=== PATIENT | male | born 1950 | race Caucasian/White ===

== ENCOUNTER 2020-01-13 15:50 | Inpatient (IN) | payer BC, MEDICARE ==
[~2020-01-13] VITALS: Ht 182.8 cm; Wt 90.7 kg
--- NOTE | 2020-01-13 15:59 | ED Chest Pain ---
General Stated Complaint: CHEST PAIN Source: patient Exam Limitations: no limitations History of Present Illness Date Seen by Provider: Jan 13, 2020 Time Seen by Provider: 15:57 Initial Comments To ER with reports of chest pain. This began about 3:05 PM while he was driving to work and [place]. 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 He lives in [facility] where his primary care provider is at. He has a history of hypertension. No history of chest pain. This pain is described as tightness in the center of his chest and was associated with diaphoresis. No nausea. EMS arrived and gave 324 mg of aspirin as well as 1 sublingual nitroglycerin which completely alleviated his pain. However [facility] pain recurred and is rated at 4-5 out of 10. He does not smoke or have known hyperlipidemia or diabetes. 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 SL SHUTTLE BUGGY OPERATOR: Yes Allergies and Home Medications Allergies Coded Allergies: No Known Drug Allergies (Unverified , 01/13/20) Patient Home Medication List Home Medication List Reviewed: Yes Review of Systems Review of Systems Constitutional: see HPI EENTM: No Symptoms Reported Respiratory: No Symptoms Reported Cardiovascular: See HPI, Chest Pain Gastrointestinal: No Symptoms Reported Genitourinary: No Symptoms Reported Musculoskeletal: no symptoms reported Skin: no symptoms reported Psychiatric/Neurological: No Symptoms Reported Endocrine: No Symptoms Reported Hematologic/Lymphatic: No Symptoms Reported Physical Exam Vital Signs Capillary Refill : Height, Weight, BMI Height: '" Weight: lbs. oz. kg; BMI Method: General Appearance: No Apparent Distress, WD/WN, Other HEENT: PERRL/EOMI, TMs Normal Neck: Full Range of Motion, Normal Inspection Respiratory: Normal Breath Sounds, No Accessory Muscle Use, No Respiratory Dis tress Cardiovascular: Regular Rate, Rhythm, Normal Peripheral Pulses Gastrointestinal: Non Tender, Soft Extremity: Normal Capillary Refill, Normal Inspection Neurologic/Psychiatric: Alert, Oriented x3 Skin: Normal Color, Warm/Dry Progress/Results/Core Measures Results/Orders Lab Results Laboratory Tests Test 01/13/20 16:00 Range/Units White Blood Count 6.6 4.3-11.0 10^3/uL Red Blood Count 5.84 H 4.30-5.52 10^6/uL Hemoglobin 16.9 13.3-17.7 g/dL Hematocrit 52 40-54 % Mean Corpuscular Volume 88 80-99 fL Mean Corpuscular Hemoglobin 29 25-34 pg Mean Corpuscular Hemoglobin Concent 33 32-36 g/dL Red Cell Distribution Width 14.3 10.0-14.5 % Platelet Count 166 130-400 10^3/uL Mean Platelet Volume 11.6 9.0-12.2 fL Immature Granulocyte % (Auto) 0 % Neutrophils (%) (Auto) 72 42-75 % Lymphocytes (%) (Auto) 18 12-44 % Monocytes (%) (Auto) 9 0-12 % Eosinophils (%) (Auto) 1 0-10 % Basophils (%) (Auto) 1 0-10 % Neutrophils # (Auto) 4.7 1.8-7.8 10^3/uL Lymphocytes # (Auto) 1.2 1.0-4.0 10^3/uL Monocytes # (Auto) 0.6 0.0-1.0 10^3/uL Eosinophils # (Auto) 0.1 0.0-0.3 10^3/uL Basophils # (Auto) 0.0 0.0-0.1 10^3/uL Immature Granulocyte # (Auto) 0.0 0.0-0.1 10^3/uL My Orders Orders - RACHELE HECTOR TUTOR COORDINATOR Cbc With Automated Diff (01/13/20 15:55) Magnesium (01/13/20 15:55) Chest 1 View, Ap/Pa Only (01/13/20 15:55) Ekg Tracing (01/13/20 15:55) Comprehensive Metabolic Panel (01/13/20 15:55) Myoglobin Serum (01/13/20 15:55) Protime With Inr (01/13/20 15:55) Partial Thromboplastin Time (01/13/20 15:55) O2 (01/13/20 15:55) Monitor-Rhythm Ecg Trace Only (01/13/20 15:55) Lipid Panel (01/14/20 06:00) Ed Iv/Invasive Line Start (01/13/20 15:55) BNP (01/13/20 15:55) Troponin I (01/13/20 15:55) Nitroglycerin 0.4 Mg Btl 25's (Nitrostat (01/13/20 16:00) Antacid Suspension (Mylanta Suspension (01/13/20 16:00) Lidocaine 2% Viscous 15 Ml (Xylocaine Vi (01/13/20 16:00) Clopidogrel Tablet (Plavix Tablet) (01/13/20 16:15) Covid 19 Inhouse Test (01/13/20 16:07) Lidocaine 1% Inj 20 Ml (Xylocaine 1% Inj (01/13/20 16:09) Midazolam Injection (Versed Injection) (01/13/20 16:09) Fentanyl Injection (Sublimaze Injection (01/13/20 16:09) Heparin (Bolus Per Protocol) (Heparin (B (01/13/20 16:09) Ns Iv 1000 Ml (Sodium Chloride 0.9%) (01/13/20 16:09) Nitro Drip 21520 Mcg/D5w (Nitroglycerin (01/13/20 16:09) Heparin (Pattern Perforating Machine Operator) (Heparin (Pattern Perforating Machine Operator)) (01/13/20 16:10) Medications Given in ED Current Medications Medications Dose Ordered Sig/Jaison Route Start Time Stop Time Status Last Admin Dose Admin Clopidogrel Bisulfate 300 mg ONCE ONCE PO 01/13/20 16:15 01/13/20 16:16 DC 01/13/20 16:09 300 MG Nitroglycerin 1 TAB Q 5 MIN X 3 NEEDED PRN SL 01/13/20 16:00 01/13/20 16:09 0.4 MG Departure Communication (Admissions) [id number]-EMS obtained an EKG showing questionable ST elevation in V1 V2 V3. He does have hyperacute T waves in V2 and V3. Upon arrival here EKG was obtained, there is less pronounced ST elevation in V1 and V3 but more pronounced in V2. He is having active chest pain. I gave 300 mg of Plavix in addition to the aspirin, page to Dr. Smith who is now here to see the patient. Impression Primary Impression: Chest pain Additional Impression: Abnormal EKG Disposition: ADMITTED INPATIENT Condition: Stable Admissions Decision to Admit Reason: Admit from ER (General) Decision to Admit/Date: Jan 13, 2020 Time/Decision to Admit Time: 16:22 RACHELE HECTOR TUTOR COORDINATOR Jan 13, 2020 15:59
[2020-01-13] MEDS ORDERED: ANTACID SUSP 30 ML UDC (MYLANTA) PO ONE (16:00)
[2020-01-13] MEDS ORDERED: LIDOCAINE 2% VISCOUS 15 ML UDC PO ONE (16:00)
[2020-01-13] MEDS ORDERED: NITROGLYCERIN 0.4 MG SL TABS BTL 25'S SL PRN (16:00)
[2020-01-13] MEDS ORDERED: fentaNYL INJECTION 100 MCG/2 ML AMP ONE (16:09)
[2020-01-13] MEDS ORDERED: HEParin 1000 UNIT/ML (10ML VIAL) FOR BOLUS ONE (16:09)
[2020-01-13] MEDS ORDERED: NS IV 1000 ML 1,000 ML ONE (16:09)
[2020-01-13] MEDS ORDERED: NITRO DRIP 25000 MCG/D5W 250 ML IV ONE (16:09)
[2020-01-13] MEDS ORDERED: LIDOCAINE 1% INJ 20 ML 20 ML VIAL ONE (16:09)
[2020-01-13] MEDS ORDERED: MIDAZOLAM 5 MG/5 ML (VERSED) VIAL ONE (16:09)
[2020-01-13] MEDS ORDERED: HEParin (CATH LAB) 2,000 ML IV ONE (16:10)
[2020-01-13 16:15] LABS: BASOPHILS % (AUTO) 1 % (0-10); EOSINOPHILS # (AUTO) 0.1 10^3/uL (0.0-0.3); EOSINOPHILS % (AUTO) 1 % (0-10); HEMATOCRIT 52 % (40-54); HEMOGLOBIN 16.9 g/dL (13.3-17.7); LYMPHOCYTES # (AUTO) 1.2 10^3/uL (1.0-4.0); LYMPHOCYTES % (AUTO) 18 % (12-44); MEAN CORPUSCULAR HEMOGLOBIN 29 pg (25-34); MEAN CORPUSCULAR HGB CONC 33 g/dL (32-36); MEAN CORPUSCULAR VOLUME 88 fL (80-99); MEAN PLATELET VOLUME 11.6 fL (9.0-12.2); MONOCYTES # (AUTO) 0.6 10^3/uL (0.0-1.0); MONOCYTES % (AUTO) 9 % (0-12); NEUTROPHILS # (AUTO) 4.7 10^3/uL (1.8-7.8); NEUTROPHILS % (AUTO) 72 % (42-75); PLATELET COUNT 166 10^3/uL (130-400); WHITE BLOOD COUNT 6.6 10^3/uL (4.3-11.0)
[2020-01-13] MEDS ORDERED: CLOPIDOGREL 300 MG (PLAVIX) TABLET PO ONE ×2 (16:15→17:06)
[2020-01-13 16:21] VITALS: BP 163/94
[2020-01-13 16:29] LABS: INR 1.1 (0.8-1.4); PROTHROMBIN TIME PATIENT 14.3 SEC (12.2-14.7)
[2020-01-13 16:33] LABS: ALBUMIN 4.5 GM/DL (3.2-4.5)
[2020-01-13 16:34] LABS: POTASSIUM 4.3 MMOL/L (3.6-5.0)
[2020-01-13 16:35] LABS: CALCIUM 9.1 MG/DL (8.5-10.1)
[2020-01-13 16:36] LABS: TOTAL PROTEIN 7.6 GM/DL (6.4-8.2)
[2020-01-13 16:38] LABS: BILIRUBIN,TOTAL 0.6 MG/DL (0.1-1.0)
[2020-01-13 16:40] LABS: CREATININE SERUM 1.85 MG/DL (0.60-1.30)
[2020-01-13 16:42] LABS: MAGNESIUM 2.3 MG/DL (1.6-2.4)
--- NOTE | 2020-01-13 17:08 | Cardiac Procedure Note-CS/ASA ---
Pre-Procedure Note Pre-Op Procedure Note H&P Reviewed The H&P was reviewed, patient examined and no changes noted. Date H&P Reviewed: Jan 13, 2020 Time H&P Reviewed: 16:00 Conscious Sedation Pre-Proced Time 16:00 ASA Score 3 For ASA 3 and 4: Consider anesthesia and medical clearance. Also, for patients with a history of failed moderate sedation consider anesthesia. Airway Lungs Heart ASA score ASA 1: a normal healthy patient ASA 2: a patient with a mild systemic disease (mid diabetes, controlled hypertension, obesity x ASA 3: a patient with a severe systemic disease that limits activity (angina, COPD, prior Myocardial infarction) ASA 4: a patient with an incapacitating disease that is a constant threat to life (CHF, renal failure) ASA 5: a moribund patient not expected to survive 24 hrs. (ruptured aneurysm) ASA 6: a declared brain- patient whose organs are being harvested. For emergent operations, add the letter E after the classification Mallampati Classification Grade 3 Sedation Plan Analgesia, Amnesia, Plan communicated to team members, Discussed options with patient/fam, Discussed risks with patient/fam The patient is an appropriate candidate to undergo the planned procedure, sedation, and anesthesia. The patient immediately re-assessed prior to indication. KIYA DICKENS MD Jan 13, 2020 17:08
--- NOTE | 2020-01-13 17:14 | Cardiology History & Physical ---
HPI-Cardiology Cardiology Consultation Date of Consultation 01/13/20 Date of Admission Time Seen by Provider: 16:00 Indication: chest pain HPI 69 years old gentleman with history of hypertension, hyperlipidemia, hypothyroidism and chronic kidney disease. Started to have chest pain described as dull in nature in the retrosternal area associated with diaphoresis. Came into the emergency room and noted to have ST elevation in V2 only. Pain improved with sublingual nitroglycerin but continued to have mild chest discomfort. No similar episode in the past no previous cardiac history. PMH-Cardiology Immunizations Up To Date Tetanus Booster (DTap): Unknown Seasonal Allergies Seasonal Allergies: No Surgeries Yes Respiratory No Cardiovascular Yes Neurological No Genitourinary Yes (CKD3) Musculoskeletal No Endocrine Yes Hypothyroidsim HEENT Yes (DETACHED RETINA) Cancer No Psychosocial No Integumentary No Blood Transfusions No Social History Patient Social History Marrital Status: Employed/Student: employed Alcohol Use: Denies Use Recreational Drug Use: No Recent Foreign Travel: No Contact w/other who traveled: No Recent Infectious Disease Expo: No Family Hx Other non contributory ROS-Cardiology Review of Systems General: No Chills, No Night Sweats, No Fatigue, No Malaise, No Appetite HEENT: No Head Aches, No Visual Changes, No Eye Pain, No Ear Pain, No Dysphasia, No Sinus Congestion, No Post Nasal Drip, No Sore Throat Pulmonary: Dyspnea; No Cough, No Pleuritic Chest Pain Cardiovascular: Chest Pain; No: Palpitations, Orthopnea, Paroxysmal Noc. Dyspnea, Edema, Lt Headedness Gastrointestinal: No: Nausea, Vomiting, Abdominal Pain, Diarrhea, Constipation, Melena, Hematochezia Genitourinary: No Dysuria, No Frequency, No Incontinence, No Hematuria, No Retention Musculoskeletal: No: neck pain, shoulder pain, arm pain, back pain, hand pain, leg pain, foot pain Neurological: No: Weakness, Numbness, Incoordination, Change in speech, Confusion, Seizures Home Medications & Allergies Allergies: Coded Allergies: No Known Drug Allergies (Unverified , 01/13/20) Home Medication List Reviewed: Yes Exam-Cardiology Vital Signs Vital Signs Date Time Temp Pulse Resp B/P (MAP) Pulse Ox O2 Delivery O2 Flow Rate FiO2 01/13/20 16:21 77 10 163/94 98 Room Air 01/13/20 15:50 36.1 Exam General Appearance: Alert, Oriented X3, Cooperative, No Acute Distress HEENT: Atraumatic, PERRLA Respiratory: Clear to Auscultation, Normal Air Movement Cardiovascular: Regular Rate, Normal S1, Normal S2, No Murmurs Abdominal: Normal Bowel Sounds, Soft, No Tenderness, No Hepatosplenomegaly, No Masses Extremities: No Clubbing, No Cyanosis, No Edema, Normal Pulses, No Tenderness/Swelling Skin: No Rashes, No Breakdown, No Significant Lesion Neuro: Normal Gait, Normal Speech, Strength at 5/5 X4 Ext, Normal Tone, Sensation Intact Psych/Mental Status: Mental Status NL, Mood NL Results Labs Labs Laboratory Tests 01/13/20 16:00: White Blood Count 6.6, Red Blood Count 5.84H, Hemoglobin 16.9, Hematocrit 52, Mean Corpuscular Volume 88, Mean Corpuscular Hemoglobin 29, Mean Corpuscular Hemoglobin Concent 33, Red Cell Distribution Width 14.3, Platelet Count 166, Mean Platelet Volume 11.6, Immature Granulocyte % (Auto) 0, Neutrophils (%) (Auto) 72, Lymphocytes (%) (Auto) 18, Monocytes (%) (Auto) 9, Eosinophils (%) (Auto) 1, Basophils (%) (Auto) 1, Neutrophils # (Auto) 4.7, Lymphocytes # (Auto) 1.2, Monocytes # (Auto) 0.6, Eosinophils # (Auto) 0.1, Basophils # (Auto) 0.0, Immature Granulocyte # (Auto) 0.0, Prothrombin Time 14.3, INR Comment 1.1, Activated Partial Thromboplast Time 26, Sodium Level 139, Potassium Level 4.3, Chloride Level 105, Carbon Dioxide Level 20L, Anion Gap 14, Blood Urea Nitrogen 21H, Creatinine 1.85H, Estimat Glomerular Filtration Rate 36, BUN/Creatinine Ratio 11, Glucose Level 98, Calcium Level 9.1, Corrected Calcium 8.7, Magnesium Level 2.3, Total Bilirubin 0.6, Aspartate Amino Transf (AST/SGOT) 28, Alanine Aminotransferase (ALT/SGPT) 19, Alkaline Phosphatase 48, Myoglobin 63.3, Troponin I < 0.028, B-Type Natriuretic Peptide 21.4, Total Protein 7.6, Albumin 4.5 01/13/20 16:12: Coronavirus 2019 (TYRELL) Negative A/P-Cardiology Admission Diagnosis Non-ST elevation myocardial infarctions Hypertension Hyperlipidemia Chronic kidney disease Admission Status: Inpatient Order (span 2 midnights) Reason for Inpatient Admission: Acute myocardial infarction Assessment/Plan Non-ST elevation myocardial infarction, had mild changes in V2 only. We will proceed with emergency cardiac catheterization possible PTCA Coronary artery disease, cardiac catheterization was carried out showing severe first obtuse marginal stenosis with successful stenting using 2.5 x 12 mm drug- eluting stent with excellent results Hypertension, poorly controlled on multiple medication, restart home medication and monitor, adding Toprol-XL 25 mg daily Hyperlipidemia, maintained on simvastatin, I will change it to Lipitor and monitor tolerance and response Hypothyroidism maintained on levothyroxine Chronic kidney disease stage III. Following with a quality control tech in [place]. Continue to monitor Clinical Quality Measures AMI/AHF: ASA po Prior to arrival: Yes KIYA DICKENS MD Jan 13, 2020 17:14
[2020-01-13] MEDS ORDERED: PATIENT MAY USE OWN MEDS, ALL PO SCH (17:15)
--- NOTE | 2020-01-13 17:20 | Cardiac Cath Report ---
Cardiac Cath Report Physician (s)/Gamma Operator (s) Physician KIYA DICKENS MD Pre-Procedure Diagnosis Pre-Procedure Diagnosis: non-ST elevation myocardial infarction Post-Procedure Note Procedure Start Date: Jan 13, 2020 Name of Procedure: Left heart Catheterization Stenting to the obtuse marginal branch Findings/Procedure Note PROCEDURE NOTE: 69 years old gentleman admitted with non-ST elevation myocardial infarction, emergency cardiac catheterization was carried out. After explaining the procedure to the patient, all pros and cons were explained, all questions were answered. The patient signed the consent and then he was placed on the cardiac catheterization laboratory. Groin was prepped SL fashion local anesthesia was used. Sheath placed in the right femoral artery. Errol right and vascular right coronary artery and angiogram was done. I was unable to intubate the left coronary system with the SL catheter, I tried for the catheter without success then I was able to place EBU 3.5 guide close to the left main with grade difficulties. Angiogram was done which showed severe first obtuse marginal artery stenosis. Patient was given 5000 units of heparin, BMW wire was advanced through the obtuse marginal branch and then I adjusted the guide position and advanced drug- eluting Courtney 2.5 x 12 stent deployed under 12 larry, there was significant residual stenosis and used noncompliant tract 2.5 x 12 mm under 16 larry was able to open up the artery with excellent results At the end of the procedure the sheath was removed. Closure device was used FINDINGS: Hemodynamics LV 172/13, end-diastolic pressure of 13 Aorta 179/91 mean of 127 ANATOMY: Left Main has superior origin from the left coronary cusp. Mild disease nonobstructive disease Left Anterior Descending is smaller artery with mild tortuosity 50 percent distal stenosis, nonobstructive disease Left Circumflex is moderate in size with 95 percent stenosis in the mid first obtuse marginal branch successful primary stenting using Courtney 2.5 x 12 mm pos tdilated with noncompliant balloon under 16 larry with excellent results Right Coronory Artery is moderate in size with mild to moderate disease in the proximal and midportion LV Gram was not done to limit dye exposure to contrast, pressure was measured CONCLUSION: 1. Severe stenosis in the first obtuse marginal branch was successful primary stenting using Courtney 2.5 x 12 mm expanded to 2.6 mm using a noncompliant balloon with excellent results 2. Mild to moderate disease in the mid and distal LAD and proximal and midright coronary artery 3. Hypertension with hypertensive changes in the thoracic aorta, did not do angiogram to limit dye exposure to contrast 4. Mildly elevated left ventricular end-diastolic pressure DISCUSSION AND RECOMMENDATION: Patient was bolused with aspirin and Plavix, continue to maximize medical t herapy Anesthesia Type: Conscious Sedation Estimated blood loss (mL): 50 ml Contrast Amount: 73 ml Total Radiation Dose: 1609 mGy Post-Procedure Diagnosis Post-operative diagnosis: Non-ST elevation myocardial infarction Coronary artery disease Hypertension Hyperlipidemia KIYA DICKENS MD Jan 13, 2020 17:20
[2020-01-13] MEDS: NS IV 1000 ML 1,000 ML IV SCH ×2 (17:58→22:45)
[2020-01-13] MEDS: amLODIPine 10 MG (NORVASC) TAB PO SCH (22:44)
[2020-01-13] MEDS: OMEGA 3 (FISH OIL) 1000 MG CAP PO SCH (22:44)
[2020-01-13] MEDS: lisINopril 10 MG (PRINIVIL) TABLET PO SCH (22:45)
--- NOTE | 2020-01-14 02:15 | NUR ---
PATIENT AMBULATED IN HALLS. TOLERATED WELL. DENIES CHEST PAIN AND SOB. RIGHT GROIN SITE ASSESSED AFTER AMBULATION AND SITE IS SOFT, CLEAN, DRY AND INTACT.
[2020-01-14 03:37] LABS: HEMOGLOBIN 15.2 g/dL (13.3-17.7); MEAN PLATELET VOLUME 11.2 fL (9.0-12.2); WHITE BLOOD COUNT 6.2 10^3/uL (4.3-11.0)
[2020-01-14 04:10] LABS: CALCIUM 8.3 MG/DL (8.5-10.1)
[2020-01-14 04:14] LABS: CREATININE SERUM 1.5 MG/DL (0.60-1.30)
--- NOTE | 2020-01-14 06:48 | NUR ---
DR. DICKENS NOTIFIED OF ELEVATED TROPONIN AND ELEVATED BLOOD PRESSURE OF 170/107 AND THAT AM OF METOPROLOL WAS GIVEN EARLY. WILL CONTINUE TO MONITOR.
[2020-01-14] MEDS ORDERED: ASPIRIN E.C. 81 MG (ECOTRIN) TAB PO SCH (09:00)
[2020-01-14] MEDS ORDERED: CLOPIDOGREL 75 MG (PLAVIX) TABLET PO SCH (09:00)
[2020-01-14] MEDS ORDERED: OMG1KC PO (09:11)
[2020-01-14] MEDS ORDERED: LISI10TA2 PO (09:11)
[2020-01-14] MEDS ORDERED: AMLO-251 PO (09:11)
[2020-01-14] MEDS ORDERED: MTP25TSR PO (09:11)
[2020-01-14] MEDS ORDERED: ATOR20TA66 PO (09:11)
[2020-01-14] MEDS ORDERED: ASPI-1238 PO (09:11)
[2020-01-14] MEDS ORDERED: CLOP75TA28 PO (09:11)
--- NOTE | 2020-01-14 09:11 | Discharge Inst-Post CATH ---
Discharge Inst-CATH/EP Problems Reviewed?: Yes Post Cardiac Cath/EP D/C Inst Follow Up/Plan Appointment with Dr Smith's office in 2-4 weeks <b>CARDIAC CATH/EP PROCEDURE DISCHARGE INSTRUCTIONS</b> ACTIVITY * Go Home directly and rest. * Limit activity of the leg (or wrist if it was used) for 7 days including aerobics, swimming, jogging, bicycling, etc. * Restrict stair-climbing for 7 days if possible, if not, climb up with your non-cath leg, then bring together on the same step. * Avoid lifting, pushing, pulling or excessive movement of the affected extremity for 7 days. * Customary sexual activity may be resumed after 2 days-use caution not to use a position that strains or causes pain to the affected extremity. * No driving for 24 hours. * NO SMOKING. * Avoid straining for bowel movements for 7 days. * Gentle walking on level ground is allowed. * Returning to work will depend on the type of procedure and the results. Your doctor will discuss this with you. CALL YOUR DOCTOR FOR ANY OF THE FOLLOWING: *If bleeding from the puncture site occurs- Apply gentle pressure to site with clean cloth and call your doctor or EMS. * If a knot or lump forms under the skin, increases in size, or causes pain. * If bruising appears to be worsening or moving further down your leg instead of disappearing. * Temperature above 101 F. CARE OF YOUR GROIN INCISION; * Bruising or purple discoloration of the skin near the puncture site is common. * You may shower only, no bathtub bathing for 5 days. Be careful to avoid slipping as your leg may feel stiff. * If a closure device was used on your femoral artery, please see the attached guide regarding care of the device and your leg. * Leave dressing on FOR 24 hours. CARE OF YOUR WRIST INCISION; * Bruising or purple discoloration of the skin near the puncture site is common. * You may shower. * DO NOT submerge wrist. * Leave dressing on FOR 24 hours. KIYA SMITH MD Jan 14, 2020 09:11
--- NOTE | 2020-01-14 09:30 | Cardiology Discharge Summary ---
Discharge Summary Hospital Course Hospital Course Date of Admission: Admission Diagnosis : Family Physician/Provider: YessicaLocal Physician Date of Discharge: 01/14/20 Discharge Diagnosis: [ ] Hospital Course: [ Non-ST elevation myocardial infarction, on and is elevated to 19,had cardiac catheterization and stent as described below Coronary artery disease, cardiac catheterization was carried out showing severe first obtuse marginal stenosis with successful stenting using 2.5 x 12 mm drug- eluting stent with excellent results Hypertension, restart home medication monitor blood pressure Hyperlipidemia, maintained on simvastatin, I will change it to Lipitor and monitor tolerance and response Hypothyroidism maintained on levothyroxine Chronic kidney disease stage III. Following with a complaint manager in [place]. Continue to monitor] Labs and Pending Lab Test: Laboratory Tests 01/13/20 16:00: White Blood Count 6.6, Red Blood Count 5.84H, Hemoglobin 16.9, Hematocrit 52, Mean Corpuscular Volume 88, Mean Corpuscular Hemoglobin 29, Mean Corpuscular Hemoglobin Concent 33, Red Cell Distribution Width 14.3, Platelet Count 166, Mean Platelet Volume 11.6, Immature Granulocyte % (Auto) 0, Neutrophils (%) (Auto) 72, Lymphocytes (%) (Auto) 18, Monocytes (%) (Auto) 9, Eosinophils (%) (Auto) 1, Basophils (%) (Auto) 1, Neutrophils # (Auto) 4.7, Lymphocytes # (Auto) 1.2, Monocytes # (Auto) 0.6, Eosinophils # (Auto) 0.1, Basophils # (Auto) 0.0, Immature Granulocyte # (Auto) 0.0, Prothrombin Time 14.3, INR Comment 1.1, Activated Partial Thromboplast Time 26, Sodium Level 139, Potassium Level 4.3, Chloride Level 105, Carbon Dioxide Level 20L, Anion Gap 14, Blood Urea Nitrogen 21H, Creatinine 1.85H, Estimat Glomerular Filtration Rate 36, BUN/Creatinine Ratio 11, Glucose Level 98, Calcium Level 9.1, Corrected Calcium 8.7, Magnesium Level 2.3, Total Bilirubin 0.6, Aspartate Amino Transf (AST/SGOT) 28, Alanine Aminotransferase (ALT/SGPT) 19, Alkaline Phosphatase 48, Myoglobin 63.3, Troponin I < 0.028, B-Type Natriuretic Peptide 21.4, Total Protein 7.6, Albumin 4.5 01/13/20 16:12: Coronavirus 2019 (TYRELL) Negative 01/14/20 03:25: White Blood Count 6.2, Red Blood Count 5.26, Hemoglobin 15.2, Hematocrit 46, Mean Corpuscular Volume 87, Mean Corpuscular Hemoglobin 29, Mean Corpuscular Hemoglobin Concent 33, Red Cell Distribution Width 14.3, Platelet Count 168, Mean Platelet Volume 11.2, Sodium Level 137, Potassium Level 4.0, Chloride Level 107, Carbon Dioxide Level 18L, Anion Gap 12, Blood Urea Nitrogen 19H, Creatinine 1.50H, Estimat Glomerular Filtration Rate 46, BUN/Creatinine Ratio 13, Glucose Level 96, Calcium Level 8.3L, Troponin I 19.207*H, Triglycerides Level 120, Cholesterol Level 261H, LDL Cholesterol Direct 215H, VLDL Cholesterol 24, HDL Cholesterol 45 Home Meds Active Assessment/Pt DC Instructions discharge instruction were given to the patient Discharge Physical Examination Allergies: Coded Allergies: No Known Drug Allergies (Unverified , 01/13/20) General Appearance: No Apparent Distress, WD/WN HEENT: PERRL/EOMI, TMs Normal, Normal ENT Inspection, Pharynx Normal Respiratory: Chest Non Tender, Lungs Clear, Normal Breath Sounds, No Accessory Muscle Use Cardiovascular: Regular Rate, Rhythm, No Edema, No Gallop, No JVD, No Murmur Gastrointestinal: Normal Bowel Sounds, No Organomegaly, No Pulsatile Mass, Non Tender Extremity: Normal Capillary Refill, Normal Inspection, Normal Range of Motion Clinical Quality Measures AMI/AHF: ASA po Prior to arrival: Yes KIYA DICKENS MD Jan 14, 2020 09:30
[2020-01-14] MEDS ORDERED: CYAN-23 PO (09:58)
[2020-01-14] MEDS ORDERED: LISI-552 PO (09:58)
[2020-01-14] MEDS ORDERED: VIT1CAPS44 PO (09:58)
[2020-01-14] MEDS ORDERED: LEVO100C4 PO (09:58)
--- NOTE | 2020-01-14 10:02 | NUR ---
SPOKE WITH THE PT, CALLED [facility], AND SPOKE WITH HIS [facility] OFFICE (DR. GARCIA) TO COMPLETE THE MED REC 12-30-2019 LISINOPRIL 20MG #/DS 12-30-2019 LEVOTHYROXINE 100MCG #DS PATIENT MENTIONS HE IS PRESCRIBED A ROSUVASTATIN ( LAST FILLED #90DS) BUT DOESNT LIKE TAKING STATINS MEDS. ACCORDING TO PT IS HAS BEEN SEVERAL MONTHS SINCE HE HAS TAKEN. PATIENT SAYS HE TAKES A BP MED AT BEDTIME BUT COULDNT REMEMBER THE NAME. DR. CARRILLO OFFICE LET ME KNOW THEY HAVE PRESCRIBED AMLODIPINE 5MG (LAST FILLED 07-19-2019 #30/30DS). WHEN I ASKED JULI ABOUT THE PAST DUE FILL DATE HE THINKS HE JUST RAN OUT AND NEVER REFILLED IT. FOR THE ABOVE REASONS I DID NOT INCLUDE ROSUVASTATIN OR AMLODIPINE ON THE MED REC OTC MEDS: VIT B-12 PRESERVISION
[2020-01-14] MEDS: NS IV 1000 ML 1,000 ML IV SCH (13:34)
[2020-01-14] MEDS: lisINopril 10 MG (PRINIVIL) TABLET PO SCH (13:34)
[2020-01-14] MEDS: amLODIPine 10 MG (NORVASC) TAB PO SCH (14:12)
[2020-01-14] MEDS: OMEGA 3 (FISH OIL) 1000 MG CAP PO SCH (14:13)
== END 2020-01-14 14:15 | disposition home or self-care (01) | DRG 247 ==
LOC: ER 15:58 → CATH 16:19 → CSD 16:20
PROVIDERS: ADMIT Internal Medicine Cardiovascular Disease; ATTEND Internal Medicine Cardiovascular Disease
PROC: 027034Z Dilation of Coronary Artery, One Artery with Drug-eluting Intraluminal Device, Percutaneous Approach (ICD-10-PCS; principal; 2020-01-13)
PROC: 4A023N7 Measurement of Cardiac Sampling and Pressure, Left Heart, Percutaneous Approach (ICD-10-PCS; 2020-01-13)
PROC: B2111ZZ Fluoroscopy of Multiple Coronary Arteries using Low Osmolar Contrast (ICD-10-PCS; 2020-01-13)
DX: I21.4 Non-ST elevation (NSTEMI) myocardial infarction (principal); N18.30 Chronic kidney disease, stage 3 unspecified; I25.10 Atherosclerotic heart disease of native coronary artery without angina pectoris; I12.9 Hypertensive chronic kidney disease with stage 1 through stage 4 chronic kidney disease, or unspecified chronic kidney disease; E78.5 Hyperlipidemia, unspecified; E03.9 Hypothyroidism, unspecified; Z20.828 Contact with and (suspected) exposure to other viral communicable diseases
CPT/HCPCS: 36415; 80048; 80053; 80061; 83735; 83874; 83880; 84484; 85025; 85027; 85610; 85730; 87635; 93005; 93041; 93458